=== PATIENT | male | born 1960 ===

== ENCOUNTER 2019-04-17 06:50 | Day surgery (SDC) | payer OTHER ==
[~2019-04-17] VITALS: Ht 175.3 cm; Wt 54.3 kg
[~2019-04-17 06:50] MED LIST: ASPI81CH PO; ATOR40TA PO; CILO100 PO; CLOP75; CYCL10; Dilantin 100 m100 MG PO; METF500 PO; PHENY100ER PO; PROP80ER; ROSU10TA
--- NOTE | 2019-04-17 07:45 | NUR ---
04/17/19 0745 Teagan Bates AT BEDSIDE
== END 2019-04-17 09:11 | disposition home or self-care (01) ==
LOC: ORSCSDS 06:50
PROVIDERS: Surgery
PROC: 0DBK8ZX Excision of Ascending Colon, Via Natural or Artificial Opening Endoscopic, Diagnostic (ICD-10-PCS; principal; 2019-04-17 08:00)
PROC: 0DBL8ZX Excision of Transverse Colon, Via Natural or Artificial Opening Endoscopic, Diagnostic (ICD-10-PCS; principal; 2019-04-17 08:00)
DX: Z12.11 Encounter for screening for malignant neoplasm of colon (principal); Z86.010 Personal history of colon polyps; D12.2 Benign neoplasm of ascending colon; D12.3 Benign neoplasm of transverse colon; K64.2 Third degree hemorrhoids; I10 Essential (primary) hypertension; J44.9 Chronic obstructive pulmonary disease, unspecified; E11.40 Type 2 diabetes mellitus with diabetic neuropathy, unspecified; Z79.84 Long term (current) use of oral hypoglycemic drugs; Z79.899 Other long term (current) drug therapy; Z79.82 Long term (current) use of aspirin; Z87.891 Personal history of nicotine dependence
CPT/HCPCS: 82947; 88305; J2405; J2704; J7120